=== PATIENT | male | born 1960 | race African-American/Black ===

== ENCOUNTER 2020-08-24 15:54 | Emergency (ER) | payer OTHER ==
[~2020-08-24] VITALS: Ht 182.9 cm; Wt 106.6 kg
[2020-08-24 16:31] VITALS: Ht 182.9 cm; Wt 106.6 kg
[2020-08-24 21:13] VITALS: BP 145/100
== END 2020-08-24 21:13 | disposition home or self-care (01) ==
LOC: ED 15:54
DX: M54.5 Low back pain (principal); G89.29 Other chronic pain; I10 Essential (primary) hypertension
CPT/HCPCS: J2270; Q0162